=== PATIENT | female | born 1985 | race Caucasian/White ===

== ENCOUNTER 2017-06-02 11:25 | Inpatient (IN) | payer OTHER ==
[2017-06-02] MEDS ORDERED: CITRIC ACID/SODIUM CITRATE 30 ML UNIT-DOSE CUP PO ONE (12:10)
[2017-06-02] MEDS ORDERED: ELECTROLYTE-148 SOLN 500 ML IV ONE (12:10)
[2017-06-02 12:34] VITALS: BMI 38.6
[2017-06-02] MEDS: ELECTROLYTE-148 SOLN 1,000 ML IV SCH (12:45)
[2017-06-02 13:01] LABS: BASOPHIL 0.7 % (0-2.0); EOSINOPHIL 0.7 % (0-4.5); MCHC 33.6 g/dl (32.0-36.0); MEAN CELL VOLUME 86.4 fl (80-96); MEAN PLT VOLUME 10.7 fl (7.5-11.1); NEUTROPHILS 74.5 % (42.8-82.8); PLATELET COUNT 143 K/MM3 (134-434); RDW 14.5 % (11.6-15.6); WHITE BLOOD COUNT 12.5 K/mm3 (4.0-10.0)
[2017-06-02 13:14] LABS: INR 0.92 (0.82-1.09); PROTHROMBIN TIME (PATIENT) 10.4 SEC (9.98-11.88)
[2017-06-02 13:17] LABS: ACTIVATED PTT 23.1 SECONDS (26.9-34.4)
--- NOTE | 2017-06-02 13:28 | HP ---
Past Medical History - Admission Chief Complaint: Posterm History of Present Illness: 32 yo , @ 40 weeks gestation, EDC 05/28/17, presents for NST. There was evidence of decreased heart rate in 2 occasions Decision made for delivery. History Source: Patient Limitations to Obtaining History: No Limitations - Past Medical History ...: 3 ...Para: 0 ...Term: 0 ...: 0 ...Spon : 1 ...Induced : 1 ...Multiple Gestation: 0 ...LMP: 08/21/16 ... Weeks Gestation by Dates: 40.5 ...EDC by Dates: 05/28/17 ...EDC by Sono: 05/28/17 - Past Surgical History Past Surgical History: Yes: None Hx Myomectomy: No Hx Transabdominal Cerclage: No - Smoking History Smoking history: Never smoked Have you smoked in the past 12 months: No - Alcohol/Substance Use Hx Alcohol Use: No - Social History Usual Living Arrangement: Yes: With Significant Other History of Recent Travel: No Home Medications - Allergies Allergies/Adverse Reactions: Allergies Allergy/AdvReac Type Severity Reaction Status Date / Time No Known Allergies Allergy Verified 06/02/17 11:50 - Home Medications Home Medications: Ambulatory Orders Ferrous Gluconate [Iron] 256 mg PO DAILY 06/02/17 Vit No.130/Iron/FA [ Vitamins] 1 each PO DAILY 06/02/17 Family Disease History - Family Disease History Family History: Unremarkable Review of Systems - Review of Systems Constitutional: reports: No Symptoms Eyes: reports: No Symptoms HENT: reports: No Symptoms Neck: reports: No Symptoms Cardiovascular: reports: No Symptoms Respiratory: reports: No Symptoms Gastrointestinal: reports: No Symptoms Genitourinary: reports: No Symptoms Breasts: reports: No Symptoms Reported Musculoskeletal: reports: No Symptoms Integumentary: reports: No Symptoms Neurological: reports: No Symptoms Endocrine: reports: No Symptoms Hematology/Lymphatic: reports: No Symptoms Psychiatric: reports: No Symptoms Pain Intensity: 0 Physical Exam - Maternity Vital Signs: Vital Signs Temperature 98.3 F 06/02/17 12:28 Pulse Rate 109 H 06/02/17 12:28 Respiratory Rate 20 06/02/17 12:28 Blood Pressure 130/66 06/02/17 12:28 O2 Sat by Pulse Oximetry (%) Constitutional: Yes: Well Nourished Eyes: Yes: Conjunctiva Clear HENT: Yes: Atraumatic Neck: Yes: Supple Cardiovascular: Yes: Regular Rate and Rhythm Lungs: Clear to auscultation - Abdominal Exam/OB Number of Fetuses: Single Presentation: Vertex - Physical Exam ...Motor Strength: WNL Psychiatric: Yes: Alert, Oriented - Labs Lab Results: CBC, BMP 06/02/17 12:25 Problem List - Problems (1) heart deceleration Code(s): [id number] - Assessment/Plan Non Reassuring heart rate Pre op for primary Consent signed Anesthesia to see patient
--- NOTE | 2017-06-02 13:32 | OP ---
Operative Note - Note: Operative Date: 06/02/17 Pre-Operative Diagnosis: Non Reassuring heart Rate Operation: Primary Low Trasverse Post-Operative Diagnosis: Same as Pre-op Anesthesia: Spinal Specimens Removed: Placenta
[2017-06-02 13:48] LABS: ANION GAP 11 (8-16); CO2 20 mmol/L (21-32); CREATININE 0.7 mg/dL (0.55-1.02); GLUCOSE,RANDOM 121 mg/dL (74-106)
[2017-06-02] MEDS ORDERED: IBUPROFEN 600 MG TABLET (FP) PO PRN (13:55)
[2017-06-02] MEDS ORDERED: morphine SULFATE/Preservative Free 0.5 MG/ML (1cc Syringe) SPIN ONE (13:55)
[2017-06-02] MEDS ORDERED: ONDANSETRON 4 MG/2 ML VIAL IVPUSH PRN (13:55)
[2017-06-02] MEDS ORDERED: METOCLOPRAMIDE HCL INJECTION 10 MG/2 ML VIAL IVPUSH ONE (13:55)
[2017-06-02 14:18] LABS: ARTERIAL BLOOD GAS HCO3 24.8 meq/L (22-26)
[2017-06-02] MEDS ORDERED: METHYLERGONOVINE MALEATE 0.2 MG/1 ML AMP IM PRN (14:35)
[2017-06-02 14:49] LABS: ARTERIAL BLOOD GAS pH 7.29 (7.35-7.45)
[2017-06-02 14:50] LABS: ARTERIAL BLOOD GAS PO2 10.8 mmHg (80-100)
[2017-06-02] MEDS: OXYTOCIN 20 UNITS in 0.9% NS 1,000 ML IV SCH ×2 (15:00→23:30)
--- NOTE | 2017-06-02 19:57 | OP ---
DATE OF OPERATION: 06/02/2017 PREOPERATIVE DIAGNOSIS: Nonreassuring heart rate. POSTOPERATIVE DIAGNOSIS: Nonreassuring heart rate. PROCEDURE: Primary low transverse section. SURGEON: Ruchi Lux MD IMPROVEMENT SPEC: KAYLI Schmidt ANESTHESIA: Spinal. COMPLICATIONS: None. ESTIMATED BLOOD LOSS: 600 mL. PROCEDURE: Patient was taken to the operating room where spinal anesthesia was administered. Patient was then prepped and draped in the sterile fashion. A Pfannenstiel skin incision was placed and carried down to the underlying layer of fascia. The fascia was incised in the midline and extended laterally. The inferior aspect of the fascial incision was then grasped with Tomas clamp, elevated, and the rectus muscle was dissected off bluntly. Attention was then turned to the superior aspect of the fascial incision, which in a similar fashion was then grasped with Tomas clamps, elevated, and the rectus muscles were dissected off bluntly. The rectus muscle was then in the midline. The peritoneum was identified and entered sharply with Metzenbaum scissors. This incision was extended superiorly and inferiorly with good visualization of the bladder. The vesicouterine peritoneum was then grasped with a pickup and entered sharply with Metzenbaum scissors. This incision was extended laterally and a bladder flap was created digitally. The bladder blade was inserted and the lower uterine segment was then incised with a 10-blade. The head delivered atraumatically. Nose and mouth were suctioned and the cord clamped and cut. The was handed to the waiting landscaping supervisor. The placenta was removed manually. The uterus was exteriorized and cleared of all clots and debris. The uterine incision was repaired with 0 Biosyn. A second layer of the same suture was used as a means to provide excellent hemostasis. The uterus was returned to the abdomen. The pelvis was irrigated. The peritoneum was closed using 2-0 Biosyn. The fascia was reapproximated using 0 Vicryl in a running fashion. The skin was closed in a subcuticular fashion using 3-0 Vicryl. Patient tolerated the procedure well. Patient was then taken to the PACU in stable condition. PATHOLOGY: Placenta. Vinny MORENO/[id number]
[2017-06-02] MEDS: IBUPROFEN 800 MG/8 ML IJ IVPB PRN (21:36)
--- NOTE | 2017-06-03 02:02 | PN ---
Post Progress Note - Subjective Subjective: 32 yo Para 1 status post primary seen and evaluated. Doing well. Post Day: 1 Type of Delivery: Primary C/S Vital Signs: Vital Signs Temperature 99.1 F 06/02/17 22:00 Pulse Rate 87 06/02/17 22:00 Respiratory Rate 18 06/03/17 01:00 Blood Pressure 128/80 06/02/17 22:00 O2 Sat by Pulse Oximetry (%) 100 06/02/17 16:00 Breast Exam: Yes: Soft Uterus: Yes: Fundus Firm Incision: Yes: Dressing dry and intact Abdomen/GI: Yes: Abdomen soft Lochia: Yes: Rubra Lochia, amount: Small Extremities: Yes: Calves non-tender Perineum: Yes: Intact Activity: Other (Lying in bed) - Labs Labs: CBC WBC 12.5 K/mm3 (4.0-10.0) H 06/02/17 12:25 RBC 4.57 M/mm3 (3.60-5.2) 06/02/17 12:25 Hgb 13.3 GM/dL (10.7-15.3) 06/02/17 12:25 Hct 39.5 % (32.4-45.2) 06/02/17 12:25 MCV 86.4 fl (80-96) 06/02/17 12:25 MCH 29.0 pg (25.7-33.7) 06/02/17 12:25 MCHC 33.6 g/dl (32.0-36.0) 06/02/17 12:25 RDW 14.5 % (11.6-15.6) 06/02/17 12:25 Plt Count 143 K/MM3 (134-434) 06/02/17 12:25 MPV 10.7 fl (7.5-11.1) 06/02/17 12:25 Neutrophils % 74.5 % (42.8-82.8) 06/02/17 12:25 Lymphocytes % 17.9 % (8-40) 06/02/17 12:25 Monocytes % 6.2 % (3.8-10.2) 06/02/17 12:25 Eosinophils % 0.7 % (0-4.5) 06/02/17 12:25 Basophils % 0.7 % (0-2.0) 06/02/17 12:25 Problem List - Problems (1) heart deceleration Code(s): [id number] - Assessment/Plan Status post primary Ambulation Analgesia as needed Continue routine post op care
[2017-06-03] MEDS: IBUPROFEN 800 MG/8 ML IJ IVPB PRN (06:29)
[2017-06-03 07:53] LABS: BASOPHIL 0.3 % (0-2.0); EOSINOPHIL 0.7 % (0-4.5); MCH 28.8 pg (25.7-33.7); MCHC 33.3 g/dl (32.0-36.0); MEAN CELL VOLUME 86.3 fl (80-96); MEAN PLT VOLUME 10.4 fl (7.5-11.1); NEUTROPHILS 77.2 % (42.8-82.8); PLATELET COUNT 113 K/MM3 (134-434); RDW 14.5 % (11.6-15.6); WHITE BLOOD COUNT 11.3 K/mm3 (4.0-10.0)
--- NOTE | 2017-06-03 08:09 | PN ---
Progress Note (short form) - Note Progress Note: POD #1 - s/p under spinal anesthesia with duramorph. Pt. doing well, resting comfortably in bed. VSS. No complaints. Good pain control. No apparent anesthetic complications noted. Continue current care.
[2017-06-03] MEDS ORDERED: FLU VACC QS2017-18 36MOS UP/PF 60 MCG/0.5 ML SYRINGE IM ONE (11:30)
[2017-06-03] MEDS: ACETAMINOPHEN 325 MG TABLET (FP) PO PRN ×2 (11:41→16:54)
[2017-06-03] MEDS: SIMETHICONE 80 MG TAB.CHEW (FP) PO PRN ×2 (11:41→16:54)
[2017-06-03] MEDS: IBUPROFEN 600 MG TABLET (FP) PO PRN ×2 (11:42→16:54)
[2017-06-03] MEDS ORDERED: BISACODYL 10 MG SUPP.RECT RC PRN (14:35)
[2017-06-03] MEDS: ELECTROLYTE-148 SOLN 1,000 ML IV SCH (19:58)
[2017-06-03] MEDS: OXYTOCIN 20 UNITS in 0.9% NS 1,000 ML IV SCH (19:58)
[2017-06-04] MEDS: SIMETHICONE 80 MG TAB.CHEW (FP) PO PRN ×2 (03:38→13:25)
[2017-06-04] MEDS: IBUPROFEN 600 MG TABLET (FP) PO PRN ×2 (03:39→13:23)
[2017-06-04] MEDS: ACETAMINOPHEN 325 MG TABLET (FP) PO PRN ×2 (03:39→13:23)
--- NOTE | 2017-06-04 06:53 | PN ---
Post Progress Note Post Day: 2 Type of Delivery: Primary C/S Vital Signs: Vital Signs Temperature 98.9 F 06/03/17 21:58 Pulse Rate 92 H 06/03/17 21:58 Respiratory Rate 18 06/03/17 21:58 Blood Pressure 122/84 06/03/17 21:58 O2 Sat by Pulse Oximetry (%) 100 06/02/17 16:00 Breast Exam: Yes: Soft Uterus: Yes: Fundus Firm Incision: Yes: Dressing dry and intact Abdomen/GI: Yes: Abdomen soft Lochia: Yes: Rubra Lochia, amount: Small Extremities: Yes: Calves non-tender Perineum: Yes: Intact Activity: Ambulating - Labs Labs: CBC WBC 11.3 K/mm3 (4.0-10.0) H 06/03/17 05:45 RBC 3.87 M/mm3 (3.60-5.2) 06/03/17 05:45 Hgb 11.1 GM/dL (10.7-15.3) D 06/03/17 05:45 Hct 33.4 % (32.4-45.2) D 06/03/17 05:45 MCV 86.3 fl (80-96) 06/03/17 05:45 MCH 28.8 pg (25.7-33.7) 06/03/17 05:45 MCHC 33.3 g/dl (32.0-36.0) 06/03/17 05:45 RDW 14.5 % (11.6-15.6) 06/03/17 05:45 Plt Count 113 K/MM3 (134-434) L D 06/03/17 05:45 MPV 10.4 fl (7.5-11.1) 06/03/17 05:45 Neutrophils % 77.2 % (42.8-82.8) 06/03/17 05:45 Lymphocytes % 15.3 % (8-40) 06/03/17 05:45 Monocytes % 6.5 % (3.8-10.2) 06/03/17 05:45 Eosinophils % 0.7 % (0-4.5) 06/03/17 05:45 Basophils % 0.3 % (0-2.0) 06/03/17 05:45 Assessment/Plan doing well remove dressing oob pain control labs stable
[2017-06-05 08:32] VITALS: BP 133/87; PULSE 94; TEMP 98.2
[2017-06-05 08:37] LABS: BASOPHIL 0.5 % (0-2.0); EOSINOPHIL 1.4 % (0-4.5); MCH 29.3 pg (25.7-33.7); MCHC 33.9 g/dl (32.0-36.0); MEAN CELL VOLUME 86.4 fl (80-96); MEAN PLT VOLUME 10.1 fl (7.5-11.1); NEUTROPHILS 72.3 % (42.8-82.8); PLATELET COUNT 175 K/MM3 (134-434); RDW 14.6 % (11.6-15.6); WHITE BLOOD COUNT 9.7 K/mm3 (4.0-10.0)
--- NOTE | 2017-06-06 13:43 | PATH ---
Surgical Pathology Report Patient Name: BAYLEE PEREZ Med. Rec. #: [id number] /Age/Gender: 1985 (Age: 32) / F Account: [id number] Location: [facility] OBS/LAST IRONER Taken: 06/02/2017 Received: 06/03/2017 Reported: 06/06/2017 Physicians: Ruchi Lux M.D. Specimen(s) Received PLACENTA Clinical History , 40.5 weeks post dates Positive GBS, nonreassuring heart rate Final Diagnosis PLACENTA, SECTION: 531 g THIRD TRIMESTER PLACENTA WITH TRIVASCULAR UMBILICAL CORD AND UNREMARKABLE PLACENTAL MEMBRANES. Electronically Signed Keri Clemons M.D. Gross Description The specimen is received fresh labeled placenta and is a 531 gram, 16.0 x 15.0 x 3.0 cm. placenta with attached membranes and umbilical cord. The attached membranes are muñiz, translucent with focal opacities and insert marginally. The umbilical cord measures 35.5 cm. in length and averages 1 cm. in diameter. The cord inserts at the margin. No true knots or strictures are identified. Cut surface of the umbilical cord reveals 3 vessels. The surface is dooley-blue with minimal fibrin deposition and appropriate caliber vessels. The maternal surface is red-brown with focal defects. Sectioning reveals red-brown, spongy parenchyma. No lesions are identified. Shoe Repairman sections are submitted in three cassettes as follows: 1- membrane rolls and umbilical cord; 2-3- full thickness sections of placenta. 06/05/201706/05/2017
== END 2017-06-05 15:00 | disposition home or self-care (01) | DRG 766 ==
LOC: JDEL 11:25 → JLDR 12:10 → J3W 16:15
PROVIDERS: ADMIT Obstetrics & Gynecology; ATTEND Obstetrics & Gynecology
PROC: 10D00Z1 Extraction of Products of Conception, Low, Open Approach (ICD-10-PCS; principal; 2017-06-02)
DX: O76 Abnormality in fetal heart rate and rhythm complicating labor and delivery (principal); O48.0 Post-term pregnancy; Z3A.40 40 weeks gestation of pregnancy; Z37.0 Single live birth
CPT/HCPCS: 36415; 36600; 80048; 82803; 85025; 85461; 85610; 85730; 86593; 86850; 86900; 86901; 88307-TC; 90686; G0008